=== PATIENT | female | born 1970 | race Caucasian/White ===

== ENCOUNTER 2016-09-13 07:43 | Emergency (ER) | payer MEDICAID, OTHER ==
[~2016-09-13] VITALS: Ht 152.4 cm; Wt 49.5 kg
[2016-09-13 07:46] VITALS: Ht 152.4 cm; Wt 49.5 kg
[2016-09-13] MEDS ORDERED: KETOROLAC 15 MG INJ IV STA (07:59)
[2016-09-13] MEDS ORDERED: SOD CHLORIDE 0.9% 1,000 ML IV STA (07:59)
[2016-09-13] MEDS ORDERED: LORAZEPAM 0.5 MG TAB PO ONE (08:00)
[2016-09-13 08:23] LABS: ADD SCAN DIFF NO
[2016-09-13 08:25] LABS: BASOPHILS % 0.6 % (0.0-2.0); EOSINOPHILS # 0.1 10^3/ul (0.0-0.5); EOSINOPHILS % 2.3 % (0.0-7.0); HEMATOCRIT 37.1 % (37.0-47.0); HEMOGLOBIN 12.4 g/dl (12.0-16.0); LYMPHOCYTES # 1.3 10^3/ul (0.8-2.9); LYMPHOCYTES % 38.5 % (15.0-51.0); MEAN CORPUSCULAR HEMOGLOBIN 29.5 pg (29.0-33.0); MEAN CORPUSCULAR HGB CONC 33.4 g/dl (32.0-37.0); MEAN CORPUSCULAR VOLUME 88.1 fl (82.0-101.0); MEAN PLATELET VOLUME 9.3 fl (7.4-10.4); MONOCYTE # 0.2 10^3/ul (0.3-0.9); NEUTROPHIL # 1.8 10^3/ul (1.6-7.5); NEUTROPHILS % 51.3 % (39.0-77.0); PLATELET COUNT 184 10^3/UL (140-415); RED BLOOD COUNT 4.21 10^6/ul (4.20-5.40); RED CELL DISTRIBUTION WIDTH 12.9 % (11.5-14.5); WHITE BLOOD COUNT 3.4 10^3/ul (4.8-10.8)
--- NOTE | 2016-09-13 08:43 | RADRPT ---
PROCEDURE: Chest Radiograph. CLINICAL INDICATION: Abdominal pain TECHNIQUE: Single frontal chest radiograph. COMPARISON: None available FINDINGS: The cardiomediastinal silhouette is within normal limits. No infiltrate or effusion is seen. Th e bones are intact. IMPRESSION: 1. Unremarkable chest radiograph. RPTAT: KK .Rakesh Monge MD, MD Date Time Electronically viewed and signed by .Rkaesh Monge MD, on 09/13/2016 08:43 .B/
[2016-09-13 08:45] LABS: ALBUMIN/GLOBULIN RATIO 1.14; BILIRUBIN,INDIRECT 0.3 mg/dl (0-1.1); BILIRUBIN,TOTAL 0.3 mg/dl (0.2-1.3); CALCIUM 9.1 mg/dl (8.4-10.2); CREATININE 0.58 mg/dl (0.44-1.00); POTASSIUM 3.9 mmol/L (3.5-5.1); TOTAL PROTEIN 7.5 g/dl (6.1-8.1)
[2016-09-13 08:55] LABS: TROPONIN-I 0.03 ng/ml (0.00-0.12)
[2016-09-13] MEDS ORDERED: ONDANSETRON 4 MG INJ IV STA (08:55)
[2016-09-13] MEDS ORDERED: OXYCODONE/ACETAMINOPHEN (5/325) TAB PO ONE (09:00)
[2016-09-13] MEDS ORDERED: IBUP-1542 PO (09:23)
[2016-09-13] MEDS ORDERED: CARI350T PO (09:23)
--- NOTE | 2016-09-13 09:41 | ERD ---
ER Documentation Chief Complaint Date/Time DATE: 09/13/16 TIME: 09:37 Chief Complaint Pt with intermittent CP X 3 day worst today. last about 10 min HPI This is a 46-year-old woman with dull left-sided chest pain about the size of 2 fingertips which occurs intermittently over the last 3 days. Episodes last for about 10 minutes and then resolve spontaneously. 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 She denies discomfort with ambulation and states the pain is worse when she moves her arms especially the left upper extremity. She denies headache or blurry vision, no diaphoresis, no shortness of breath, no loss of consciousness. ROS All systems reviewed and are negative except as per history of present illness. Medications Home Meds Active Scripts Carisoprodol* (Soma*) 350 Mg Tablet, 350 MG PO BID Y for MUSCLE SPASMS, #15 TAB Prov:LUZMARIA MUÑOZ MD 09/13/16 Ibuprofen* (Motrin*) 600 Mg Tab, 600 MG PO Q8 for PAIN AND/OR INFLAMMATION, #30 TAB Prov:LUZMARIA MUÑOZ MD 09/13/16 Allergies Allergies: Coded Allergies: No Known Allergy (Unverified , 09/13/16) PMhx/Soc None Medical and Surgical Hx: pt denies Medical Hx, pt denies Surgical Hx Hx Alcohol Use: No Hx Substance Use: No Hx Tobacco Use: No Smoking Status: Never smoker FmHx Family History: No diabetes Physical Exam Vitals Vital Signs Date Time Temp Pulse Resp B/P Pulse Ox O2 Delivery O2 Flow Rate FiO2 09/13/16 07:46 98.5 62 16 151/72 100 Physical Exam GENERAL: Well-developed, well-nourished, well-hydrated, in no apparent distress , looks nontoxic in appearance HEENT: Moist mucous membranes, pink conjunctiva, no cervical spine tenderness or step-off deformities, no goiter, no jaundice or icterus, extraocular movements intact without pain. No submandibular induration, and no pharyngeal erythema NEURO: Alert and oriented 3, cranial nerves II through XII intact bilaterally, pupils equal round reactive to light, no focal deficits or facial asymmetry, sensation intact distally Strength 5/5 in upper and lower extremities bilaterally CARDIAC: Regular rate and rhythm, no murmurs rubs or gallops. Patient has reproducible soft tissue chest wall tenderness over the left chest, which she states is similar to pain she is experienced for the last 3-4 days. LUNGS: Clear bilaterally no wheezing crackles or stridor ABDOMEN: Soft nontender, no guarding, no rigidity, no rebound, no psoas sign no obturator sign. Normoactive bowel sounds SKIN: Warm and dry to touch, no abrasions, contusions, or hematomas, no lacerations, no ecchymosis, no target lesions, and without ulcers EXTREMITIES: No clubbing cyanosis or edema, calves are bilaterally symmetrical, no Homans sign, no popliteal cord sign. Distal pulses equal and bilateral PSYCH: Normal affect without agitation or irritability Result Diagram: 09/13/1681109/13/16811 Results 24 hrs Laboratory Tests Test 09/13/16 08:12 White Blood Count 3.410^3/ul Red Blood Count 4.2110^6/ul Hemoglobin 12.4g/dl Hematocrit 37.1% Mean Corpuscular Volume 88.1fl Mean Corpuscular Hemoglobin 29.5pg Mean Corpuscular Hemoglobin Concent 33.4g/dl Red Cell Distribution Width 12.9% Platelet Count 48407^3/UL Mean Platelet Volume 9.3fl Neutrophils % 51.3% Lymphocytes % 38.5% Monocytes % 7.0% Eosinophils % 2.3% Basophils % 0.6% Nucleated Red Blood Cells % 0.0/100WBC Neutrophils # 1.810^3/ul Lymphocytes # 1.310^3/ul Monocytes # 0.210^3/ul Eosinophils # 0.110^3/ul Basophils # 0.010^3/ul Nucleated Red Blood Cells # 0.010^3/ul Sodium Level 143mmol/L Potassium Level 3.9mmol/L Chloride Level 108mmol/L Carbon Dioxide Level 21mmol/L Anion Gap 18 Blood Urea Nitrogen 12mg/dl Creatinine 0.58mg/dl Glucose Level 107mg/dl Calcium Level 9.1mg/dl Total Bilirubin 0.3mg/dl Direct Bilirubin 0.00mg/dl Indirect Bilirubin 0.3mg/dl Aspartate Amino Transf (AST/SGOT) 20IU/L Alanine Aminotransferase (ALT/SGPT) 41IU/L Alkaline Phosphatase 44IU/L Troponin I 0.030ng/ml Total Protein 7.5g/dl Albumin 4.0g/dl Globulin 3.50g/dl Albumin/Globulin Ratio 1.14 Lipase 41U/L Current Medications Medications (Trade) Dose Ordered Sig/Steff Route PRN Reason Start Time Stop Time Status Last Admin Dose Admin Sodium Chloride (NS) 1,000 ml @ 1,000 mls/hr Q1H STAT IV 09/13/16 07:59 09/13/16 08:58 DC 09/13/16 08:29 Ketorolac Tromethamine (Toradol) 15 mg ONCE STAT IV 09/13/16 07:59 09/13/16 08:01 DC 09/13/16 08:30 Lorazepam (Ativan) 0.5 mg ONCE ONCE PO 09/13/16 08:00 09/13/16 08:01 DC 09/13/16 08:30 Ondansetron HCl (Zofran Inj) 4 mg ONCE STAT IV 09/13/16 08:55 09/13/16 09:00 DC 09/13/16 09:04 Oxycodone/ Acetaminophen (Percocet (5/ 325)) 1 tab ONCE ONCE PO 09/13/16 09:00 09/13/16 09:01 DC 09/13/16 09:05 Procedures/MDM IV line was established patient was placed on radiation monitor rhythm strip revealed a sinus rhythm at about 60 bpm with upright P and T waves. Patient was afebrile. I administered 1 L normal saline intravenously, Toradol 15 mg IV, and lorazepam 0.5 mg p.o. with good effect. For continued discomfort she was given Percocet 1 tablet p.o. EKG performed, read by me: 64 bpm, normal sinus rhythm, normal axis, no acute ST segment changes, narrow QRS complex, with good R-wave progression in precordial leads. One AP view of the chest performed, read by me reveals no acute infiltrates, normal mediastinum, sharp costophrenic and cardiac borders, no air under the diaphragm. Otherwise unremarkable chest x-ray. CBC and electrolytes are normal, liver function tests are normal, troponin was negative The patient's history, physical exam and clinical presentation is concerning for possible cardiogenic etiology and acute coronary syndrome. Based on the patient's clinical exam and history and risk factors, I have a much lower clinical concern for pulmonary embolism, acute aortic dissection, pneumothorax, pneumonia, cardiac tamponade HEART Score: 2, for HPI and age MACE Rate: 1.7 Shared Decision Making: We had a conversation regarding risk stratification, MACE rate, and the risks, benefits, alternatives of disposition planning options. Disposition planning: Given her score and Mace rate discharge and outpatient management is a safe option. Instructions were provided to her and her son who was at the bedside. Patient will follow up with PMD for provocative cardiac testing in the next couple of days. Patient is without complaints of pain at this time. Differential diagnoses considered, included but not limited to acute coronary syndrome, pulmonary embolism, aortic dissection, abdominal aortic aneurysm, sepsis, stroke, meningitis, encephalitis, pneumonia, appendicitis, cholecystitis , bowel obstruction, pyelonephritis, nephrolithiasis, cystitis, as well as metabolic, hematologic, and electrolyte abnormalities. As well as abscess, cellulitis, fractures, and dislocations. Patient feels much better at this time, and vital signs are normal, symptoms have improved. I did give strict instructions to return to the ED if symptoms continue or worsen, patient will otherwise follow-up with primary care physician. Patient understood instructions and agreed to plan. Disclaimer: Inadvertent spelling and grammatical errors are likely due to EHR/ dictation software use and do not reflect on the overall quality of patient care. Also, please note that the electronic time recorded on this note does not necessarily reflect the actual time of the patient encounter. Departure Diagnosis: Primary Impression: Chest pain Chest pain type: unspecified Qualified Code: R07.9 - Chest pain, unspecified type Condition: Good Patient Instructions: Chest Pain, Uncertain Cause LUZMARIA MUÑOZ MD Sep 13, 2016 09:41
== END 2016-09-13 09:34 | disposition home or self-care (01) ==
LOC: E/R 07:43
DX: R07.9 Chest pain, unspecified (principal)
CPT/HCPCS: 36415; 71010; 80053; 83690; 84484; 85025; 93005; 96374; 96375; J1885; J2405; J7030; Z7502; Z7610